=== PATIENT | male | born 1985 | race Caucasian/White ===

== ENCOUNTER 2021-06-09 13:27 | Outpatient (CLI) | payer SELFPAY ==
[2021-06-10 09:12] LABS: SARS-CoV-2 PCR by NAA Not Detected (NotDetected)
== END 2021-06-09 13:28 | disposition home or self-care (01) ==
LOC: CSHLAB 13:27
PROVIDERS: ATTEND Otolaryngology Otolaryngic Allergy
DX: Z01.818 Encounter for other preprocedural examination (principal); Z20.822 Contact with and (suspected) exposure to COVID-19
CPT/HCPCS: 93005; 93010; U0003; U0005

== ENCOUNTER 2021-06-14 08:16 | Day surgery (SDC) | payer OTHER, SELFPAY ==
[2021-06-02 11:09] VITALS: BMI 41.1
[2021-06-14] MEDS ORDERED: Lidocaine 1% MPF 2 ML VIAL ONE (08:29)
[2021-06-14] MEDS ORDERED: Lidocaine 1% w/Epinephrine 1:100K 20 ML VIAL ONE (09:14)
[2021-06-14] MEDS ORDERED: Lidocaine 1% PF 5 ML VIAL ONE (09:59)
[2021-06-14] MEDS ORDERED: Ondansetron PF 4 MG/2 ML Vial ONE (09:59)
[2021-06-14] MEDS ORDERED: Midazolam HCl 2 mg/2 ml Vial ONE ×2 (09:59→10:31)
[2021-06-14] MEDS ORDERED: Rocuronium Bromide 10 MG/ML (10ML VIAL) ONE (09:59)
[2021-06-14] MEDS ORDERED: PROPOFOL 20 ML ONE ×2 (09:59→10:00)
[2021-06-14] MEDS ORDERED: Dexamethasone 4 mg/ml Vial ONE ×2 (09:59→10:00)
[2021-06-14] MEDS ORDERED: Fentanyl 250 MCG/5 ML VIAL ONE (09:59)
[2021-06-14] MEDS ORDERED: Succinylcholine 200 MG/10 ml SYRINGE FS ONE (10:00)
[2021-06-14] MEDS ORDERED: Meperidine HCl/PF 25 MG/ML VIAL ONE (12:20)
[2021-06-14] MEDS ORDERED: Fentanyl 100 MCG/2 ML VIAL ONE (12:56)
== END 2021-06-14 14:00 | disposition home or self-care (01) ==
LOC: CSHSDC 08:16
PROVIDERS: ATTEND Otolaryngology Otolaryngic Allergy
PROC: 0GTR0ZZ Resection of Parathyroid Gland, Open Approach (ICD-10-PCS; principal; 2021-06-14)
DX: E21.3 Hyperparathyroidism, unspecified (principal); E06.3 Autoimmune thyroiditis; I10 Essential (primary) hypertension; F41.9 Anxiety disorder, unspecified
CPT/HCPCS: 36415; 78070; 83970; 88305; 88331; A9500; J1100; J2175; J2250; J2405; J2704; J3010